=== PATIENT | female | born 1990 | race Caucasian/White ===

== ENCOUNTER 2021-11-16 17:30 | Emergency (ER) | payer BC ==
[~2021-11-16] VITALS: Ht 167.6 cm; Wt 68.2 kg
[~2021-11-16 17:30] MED LIST: IBU600 MG PO; PRENATAL VITAMI1 TA3 PO; SYNTHROID0.05 MG/TA PO
[2021-11-16 17:53] VITALS: TEMP 98.3
[2021-11-16 18:37] LABS: BASO % 0.4 % (0.0-2.0); EOS % 0.3 % (0.0-4.0); GRAN # 6.9 K/mm3 (1.4-6.5); GRAN % 75.1 % (42.2-75.2); HEMATOCRIT 40.4 % (37.0-47.0); HEMOGLOBIN 14.9 g/dl (12.5-16.0); LYMPH # 1.5 K/mm3 (1.2-3.4); LYMPH % 16.6 % (20.0-51.0); MEAN CELL VOLUME 85 fl (80.0-100.0); MEAN CORPUSCULAR HEMOGLOBIN 31 pg (27-31); MEAN CORPUSCULAR HGB CONC 37 g/dl (33.0-37.0); MEAN PLATELET VOLUME 11.2 fl (7.4-10.4); MONO # 0.7 K/mm3 (0.1-0.6); MONO % 7.3 % (1.7-9.3); PLATELET COUNT 210 K/mm3 (130-400); RED BLOOD COUNT 4.78 M/mm3 (4.10-5.30); REDCELL DISTRIBUTION WIDTH-CV 11.9 % (11.5-14.5)
[2021-11-16 18:55] LABS: ALBUMIN 4.2 gm/dL (3.5-5.0); BILIRUBIN,TOTAL 0.8 mg/dL (0.2-1.2); CALCIUM 9.5 mg/dL (8.4-10.2); CREATININE, serum 0.72 mg/dL (0.57-1.11); POTASSIUM 3.8 mmol/L (3.5-4.5); TOTAL PROTEIN 7.2 gm/dL (6.2-8.1)
[2021-11-16 19:13] LABS: COLLECTION METHOD CLEAN CATCH
[2021-11-16 19:21] LABS: PH 5 (5-8); SQUAMOUS EPITHELIAL 0-2 /hpf (0-10); URINE APPEARANCE Clear (CLEAR/HAZY); URINE BACTERIA None Seen /hpf (NONE SEEN); URINE BILIRUBIN Negative (NEGATIVE); URINE BLOOD Negative (NEGATIVE); URINE COLOR Yellow (YELLOW); URINE GLUCOSE Negative (NEGATIVE); URINE KETONE 2+ (NEGATIVE); URINE LEUKOCYTE ESTERASE Negative (NEGATIVE); URINE NITRATE Negative (NEGATIVE); URINE PROTEIN(semi-quant) Negative (NEGATIVE); URINE RBC 0-2 /hpf (0-2); URINE UROBILINOGEN Negative (NEGATIVE)
[2021-11-16] MEDS ORDERED: REGLAN 10MG10 MG/TAB PO (19:46)
[2021-11-16 19:55] VITALS: BP 122/78; PULSE 72
== END 2021-11-16 19:55 | disposition home or self-care (01) ==
LOC: COL.ER 17:30
PROVIDERS: Physician Assistant
DX: O21.0 Mild hyperemesis gravidarum (principal); Z3A.08 8 weeks gestation of pregnancy; Z28.311 Partially vaccinated for COVID-19
CPT/HCPCS: J2765; J7030

== ENCOUNTER 2022-06-27 19:53 | Inpatient (IN) | payer BC ==
[2022-06-27] VITALS (9 sets, daily range): BP systolic 112–177; BP diastolic 57–84; PULSE 61–91
[~2022-06-27] VITALS: Ht 167.6 cm; Wt 85.9 kg
[~2022-06-27 19:53] MED LIST changes: +REGLAN 10MG10 MG/TAB PO
--- NOTE | 2022-06-27 20:00 | NUR ---
PT TO UNIT VIA WHEELCHAIR WITH COMPLAINTS OF CTX THAT BEGAN AT 1730 THIS EVENING. PT TO ROOM, ASSISTED INTO A GOWN BY THIS NURSE AND Musa ROSAS, SALES TEAM MEMBER. Musa SHEPARD RN IN ROOM TO PERFORM SVE, /-1 BULGING BAG. WILL NOTIFY PHYSICIAN.
[2022-06-27 20:33] LABS: BASO % 0.2 % (0.0-2.0); EOS # 0.1 K/mm3 (0.0-0.7); EOS % 0.5 % (0.0-4.0); GRAN # 7.5 K/mm3 (1.4-6.5); GRAN % 66.4 % (42.2-75.2); HEMATOCRIT 39.2 % (37.0-47.0); HEMOGLOBIN 14.5 g/dl (12.5-16.0); LYMPH # 2.6 K/mm3 (1.2-3.4); LYMPH % 23.2 % (20.0-51.0); MEAN CELL VOLUME 88 fl (80.0-100.0); MEAN CORPUSCULAR HEMOGLOBIN 33 pg (27-31); MEAN CORPUSCULAR HGB CONC 37 g/dl (33.0-37.0); MEAN PLATELET VOLUME 12.9 fl (7.4-10.4); MONO # 1.1 K/mm3 (0.1-0.6); MONO % 9.3 % (1.7-9.3); PLATELET COUNT 173 K/mm3 (130-400); RED BLOOD COUNT 4.44 M/mm3 (4.10-5.30); REDCELL DISTRIBUTION WIDTH-CV 13.2 % (11.5-14.5)
--- NOTE | 2022-06-27 20:36 | NUR ---
Moved to sit on edge of bed for epidural placement. Chasity Neal CRNA @ bedside. See anesthesia record. EFM tracing maternal heart rate.
--- NOTE | 2022-06-27 20:52 | NUR ---
Pt sitting on edge of bed, visibly relaxing. Dr Monte into room, discusses plan of care with pt. 2053 SROM large amount of clear fluid. Pt assisted to lay down. [address] Monte. Complete.
--- NOTE | 2022-06-27 21:00 | NUR ---
Pushing involuntarily. Difficult to maintain FHR tracing. pt set up and prepped for delivery. Dr Monte continues in room. NSy notified. [address] Monte. [address] cord [address] Monte, cord breaks at vaginal introitus. Clamps repositioned by Dr Monte. 2119 placents delivers spont and intact. pitocin started at bolus rate.
--- NOTE | 2022-06-27 21:05 | NUR ---
2104 Pt relaxes between contractions, then states "my epidural's not working it hurts too bad" when trying to push. Lidocaine to perineum by Dr Monte.
[2022-06-27] MEDS ORDERED: PRENATAL TABLET PO (21:07)
[2022-06-27] MEDS ORDERED: ZOLOFT 50MG50 MG PO (21:09)
--- NOTE | 2022-06-28 | NUR ---
IV to INT. Epidural catheter dc'd. Up to bathroom with steady gait. Voids without difficulty. Performs own pericare. pads, panties and clean gorn on. Ambulates to room pushing baby in crib.
[2022-06-28 04:45] VITALS: BP 144/78; PULSE 82; TEMP 98.2
[2022-06-28 08:15] VITALS: BP 133/78; PULSE 70
[2022-06-28] MEDS ORDERED: IBU600 MG PO (08:40)
--- NOTE | 2022-06-28 09:51 | NUR ---
Initial visit; Parents thanked for offering congratulations for the of their son and for offering him a "[facility] [place]" at their request. Meeting Facilitator thanked family for choosing [facility] and for letting her offer Blessings to their son.
[2022-06-28 15:54] VITALS: BP 123/69; PULSE 75; TEMP 98.6
[2022-06-28 21:00] VITALS: BP 128/64; PULSE 70; TEMP 98
--- NOTE | 2022-06-29 08:15 | NUR ---
Ambulates to the bathroom and back. Assessment done, question offered and answered.
[2022-06-29 08:30] VITALS: BP 136/85; PULSE 64; TEMP 97.9
--- NOTE | 2022-06-29 10:00 | NUR ---
Rests in bed, alert. Ibuprofen 600 mg, tylenol 1000 mg given as ordered.
== END 2022-06-29 14:35 | disposition home or self-care (01) | DRG 807 ==
LOC: LDRO 19:53 → LDR 20:15 → LDRO 20:40 → OB 20:47 → LDR 20:47 → OB 06-28
PROVIDERS: ADMIT Obstetrics & Gynecology
PROC: 10E0XZZ Delivery of Products of Conception, External Approach (ICD-10-PCS; principal; 2022-06-27)
PROC: 0KQM0ZZ Repair Perineum Muscle, Open Approach (ICD-10-PCS; 2022-06-27)
DX: O99.344 Other mental disorders complicating childbirth (principal); Z37.0 Single live birth; F41.9 Anxiety disorder, unspecified; Z3A.39 39 weeks gestation of pregnancy; Z86.16 Personal history of COVID-19; O99.284 Endocrine, nutritional and metabolic diseases complicating childbirth; E03.9 Hypothyroidism, unspecified; O70.1 Second degree perineal laceration during delivery; O43.193 Other malformation of placenta, third trimester; Z23 Encounter for immunization
CPT/HCPCS: J2590; J7120